=== PATIENT | female | born 1965 | race Caucasian/White ===

== ENCOUNTER 2016-10-22 12:39 | Emergency (ER) | payer OTHER ==
--- NOTE | ~2016-10-22 | CR126 ---
[facility]. [place] A Service of [facility] & [facility] RADIOLOGY TEXT RESULTS PATIENT: ELEANOR MCGUIRE LOCATION: SED : 67 UNIT #: [id number] AGE: [address]: SERENA MOBLEY SEX: F ORDER DR: [id number] [place] [id number] E MR#: [id number] Acc #: [id number] NAME: ELEANOR MCGUIRE. : 1965 SEX: F STUDY DATE/TIME: 10/22/2016 13:07 UNIT: SED ROOM: STUDY DESCRIPTION: CR Foot Complete Min 3 View Lt Attending Physician: Serena Mobley A.P.R.N. Ordering Physician: Serena Mobley A.P.R.N. Primary Care Physician: Merry Bowles A.P.R.N. MEDICAL IMAGING REPORT This report is preliminary unless electronic signature is present. EXAM Left foot 3 views HISTORY Foot pain and bruising at the first metatarsal after stubbing toe 2 days ago. FINDINGS 3 views of the left foot demonstrate oblique fractures through the medial margin of the distal tip of the proximal phalanx of the great toe extending into the IP joint with 1-2 mm separation of the fracture fragment. No dislocation. Remainder of the foot is unremarkable. No additional acute findings. No dislocation. Small plantar calcaneal spur. Dictated by... Shayan Hobson M.D. THIS IS AN ELECTRONICALLY VERIFIED REPORT Shayan Hobson M.D. at 10/22/2016 10:13 PM DFL/pcl TD: 10/22/2016 16:14 JOB #: [id number] MEDICAL IMAGING REPORT Page 1 of 1
[~2016-10-22 12:39] MED LIST: ALBUTEROL17 GM INH; ASPIRIN81 M1 PO; BACTRIM DS TABL1 TA2 PO; CLEOCIN; CLEOCIN HCL300 M1 PO; CLEOCIN PO; CLEOCIN150 MG PO; CLINDAMYCIN HC300 MG PO; CYMBALTA30 MG PO; DEPAKOTE PO; DIVALPROEX SOD250 M1 PO; ESKALITH PO; IBUPROFEN800 MG PO; KEFLEX125 MG/5 M PO; KEFLEX500 MG PO; LITHIUM CARBON600 MG PO; LORTAB 10/500 T1 TAB; LORTAB 5/500 TA1 TA1 PO; LORTAB 7.5-5001 TAB PO; NAPROXEN PO; NEURONTIN PO; NO MEDICATIONS; NORCO 10/3251 TAB PO; NORCO1 TAB 10/3 PO; OMEPRAZOLE20 M1 PO; POLYGESIC 5/5001 CAP PO; PRILOSEC; PRILOSEC PO; PROVERA PO; SEROQUEL; SERTRALINE HCL50 M1 PO; SUDAFED30 M1 PO; TERBINAFINE (L250 MG PO; TOPAMAX200 MG PO; TRILEPTAL PO; TYLENOL #3 PO; ULTRAM PO; VICODIN 5/1 TAB 5/50 PO; ZOLOFT; ZOLOFT PO
== END 2016-10-22 13:59 | disposition home or self-care (01) ==
LOC: SED 12:39
DX: S92.412A Displaced fracture of proximal phalanx of left great toe, initial encounter for closed fracture (principal); J44.9 Chronic obstructive pulmonary disease, unspecified; J45.909 Unspecified asthma, uncomplicated; F17.200 Nicotine dependence, unspecified, uncomplicated; W22.01XA Walked into wall, initial encounter; Y92.009 Unspecified place in unspecified non-institutional (private) residence as the place of occurrence of the external cause
CPT/HCPCS: 29405; 73630; 99283